=== PATIENT | female | born 1960 | race Caucasian/White ===

== ENCOUNTER 2020-04-25 08:04 | Observation (INO) ==
[2020-04-25] MEDS ORDERED: Midazolam 5 mg/5 ml VIAL 1 mg/ml 5 ml VIAL (5 mg) ONE (09:16)
[2020-04-25] MEDS ORDERED: fentaNYL 100 mcg/2 ml 50 MCG/ML VIAL ONE (09:16)
[2020-04-25] MEDS ORDERED: Heparin 2 UNITS/ML 1000 mls 3,000 ML IV ONE (09:17)
[2020-04-25] MEDS ORDERED: Heparin 1,000 UNIT/ML 10 ml (10,000 UNITS) CATHLAB/DIALYSIS ONE (09:17)
[2020-04-25] MEDS ORDERED: VERAPAMIL 2.5 MG/ML 2 ML VIAL ** 5 mg/2 ml ONE (09:17)
[2020-04-25] MEDS ORDERED: Iohexol 350 (CONTRAST) 200 ML MDV IV ONE ×3 (09:17→10:02)
[2020-04-25] MEDS ORDERED: Lidocaine 1% VIAL 10 MG/ML VIAL ONE (09:17)
[2020-04-25] MEDS ORDERED: nitroGLYCERIN DRIP 25,000 MCG/250 ML BTL ONE (09:17)
[2020-04-25] MEDS ORDERED: diPHENhydraMINE IV 50 MG/ML 1 ml VIAL (BENADRYL) ONE (09:47)
[2020-04-25] MEDS ORDERED: HYDROmorphone 1 MG/1 ML SYRINGE ONE (09:56)
[2020-04-25] MEDS ORDERED: Bivalirudin 250 MG VIAL ONE ×3 (10:48→12:13)
[2020-04-25] MEDS ORDERED: Bivalirudin 250 MG in NS 0.9% 50 ML 50 ML IV SCH (13:00)
[2020-04-25] MEDS: NS 0.9% 1000 ml BAG 1,000 ML IV SCH (13:10)
[2020-04-25 14:47] LABS: ABS Basophils 0.1 10^3/ul (0-0.2); ABS Eosinophils 0.1 10^3/ul (0-0.6); ABS Lymphocytes 2.6 10^3/ul (1.0-4.8); ABS Monocytes 0.4 10^3/ul (0-0.8); ABS Neutrophils 5.8 10^3/ul (1.5-7.7); Hematocrit 38 % (35-47); Lymphocyte % 29.2 %; Mean Corpuscular HGB Conc 34 g/dL (31-36); Mean Corpuscular Hemoglobin 30 pg (27-31); Mean Corpuscular Volume 88 fL (80-97); Mean Platelet Volume 9.1 fL (7.4-10.4); Platelet Count 256 10^3/uL (150-450); Red Blood Count 4.32 10^6 /uL (3.70-4.87); Red Cell Distribution Width 13 % (10-15); White Blood Count 8.9 10^3/uL (3.5-10.8)
[2020-04-25 15:17] LABS: BUN/Creatinine Ratio 17.6 (8-20); Calcium 9.4 mg/dL (8.6-10.3); EGFR African American 107.2 (>60); EGFR Non-African American 88.6 (>60); Phosphorus 3.4 mg/dL (2.5-5.0); Potassium 3.3 mmol/L (3.5-5.0)
[2020-04-25] MEDS ORDERED: Potassium Chlor 20 meq TAB.ER PO ONE (15:52)
[2020-04-26] MEDS: NS 0.9% 1000 ml BAG 1,000 ML IV SCH (00:21)
[2020-04-26 05:50] LABS: ABS Eosinophils 0.1 10^3/ul (0-0.6); ABS Lymphocytes 1.8 10^3/ul (1.0-4.8); ABS Monocytes 0.4 10^3/ul (0-0.8); ABS Neutrophils 6.1 10^3/ul (1.5-7.7); Eosinophil % 1.3 %; Hematocrit 28 % (35-47); Hemoglobin 9.8 g/dL (12.0-16.0); Lymphocyte % 21.5 %; Mean Corpuscular HGB Conc 35 g/dL (31-36); Mean Corpuscular Hemoglobin 30 pg (27-31); Mean Corpuscular Volume 87 fL (80-97); Mean Platelet Volume 8.6 fL (7.4-10.4); Platelet Count 178 10^3/uL (150-450); Red Blood Count 3.21 10^6 /uL (3.70-4.87); Red Cell Distribution Width 13 % (10-15); White Blood Count 8.5 10^3/uL (3.5-10.8)
[2020-04-26 06:07] LABS: BUN/Creatinine Ratio 18.8 (8-20); EGFR African American 160.2 (>60); EGFR Non-African American 132.4 (>60); Magnesium 1.3 mg/dL (1.9-2.7); Potassium 2.8 mmol/L (3.5-5.0)
[2020-04-26 06:13] LABS: Calcium 6.4 mg/dL (8.6-10.3)
[2020-04-26] MEDS ORDERED: Magnesium Sulf 4 GM/100 ML IV 4,000 MG/100 ML BAG IVPB ONE (07:08)
[2020-04-26] MEDS: KCL 20 MEQ/100 ML IVPREMIX 20 MEQ/100 ML BAG IV SCH ×3 (08:25→12:40)
[2020-04-26 08:33] LABS: Phosphorus 2.3 mg/dL (2.5-5.0)
[2020-04-26] MEDS ORDERED: Potassium Phosphate IV 5 MMOLE in NS 0.9% 250 ml 250 ML IVPB ONE (08:58)
[2020-04-26] MEDS ORDERED: CALCIUM GLUCONATE 1GM/50ML NS 1 GM/50 ML BAG IV ONE (08:59)
[2020-04-26] MEDS ORDERED: Potassium Chloride LIQUID 20 MEQ/15 ML LIQUID PO SCH (09:00)
[2020-04-26] MEDS ORDERED: AMLODIPINE 5 MG PO SCH (09:00)
[2020-04-26] MEDS ORDERED: CITALOPRAM 20 MG PO SCH (09:00)
[2020-04-26 15:08] LABS: Hematocrit 36 % (35-47); Hemoglobin 12.8 g/dL (12.0-16.0)
[2020-04-26 15:20] LABS: Potassium 4.3 mmol/L (3.5-5.0)
[2020-04-26 15:21] VITALS: BP 149/73
[2020-04-26 15:21] LABS: Calcium 9.5 mg/dL (8.6-10.3); EGFR African American 92.8 (>60); EGFR Non-African American 76.7 (>60); Magnesium 2.6 mg/dL (1.9-2.7); Phosphorus 3.6 mg/dL (2.5-5.0)
== END 2020-04-26 16:45 | disposition home or self-care (01) | DRG 175 ==
LOC: CHICATH 08:04 → INTOOBSV 13:22 → ICU 13:22
PROVIDERS: ADMIT Internal Medicine Cardiovascular Disease; ATTEND Internal Medicine Cardiovascular Disease

== ENCOUNTER 2020-08-21 18:07 | Observation (INO) ==
[2020-08-21] MEDS: NS 0.9% 1000 ml BAG 2,000 ML IV ONE ×2 (22:01→22:05)
[2020-08-21 22:28] LABS: Hematocrit 40 % (35-47); Hemoglobin 13.4 g/dL (12.0-16.0); Mean Corpuscular HGB Conc 33 g/dL (31-36); Mean Corpuscular Hemoglobin 29 pg (27-31); Mean Corpuscular Volume 87 fL (80-97); Mean Platelet Volume 8.9 fL (7.4-10.4); Platelet Count 283 10^3/uL (150-450); Red Blood Count 4.65 10^6 /uL (3.70-4.87); Red Cell Distribution Width 13 % (10-15); White Blood Count 23.4 10^3/uL (3.5-10.8)
[2020-08-21 22:34] LABS: Urine Appearance Cloudy; Urine Bilirubin Negative (Negative); Urine Blood 1+ (Negative); Urine Color Yellow; Urine Glucose Negative (Negative); Urine Ketones Trace (Negative); Urine Nitrite Negative (Negative); Urine Protein 2+(100 mg/dL) (Negative); Urine Specific Gravity 1.018 (1.002-1.030); Urine Urobilinogen Negative (Negative)
[2020-08-21 22:39] LABS: Urine Amorphous Crystals Present (Absent); Urine Bacteria 1+ (Absent); Urine Red Blood Cell 1+(3-5/hpf) (Absent); Urine Squamous Epithelial Cell Present (Absent); Urine White Blood Cell 3+(>20/hpf) (Absent)
[2020-08-21 22:40] LABS: ABS Lymphocytes 1.3 10^3/ul (1.0-4.8); ABS Monocytes 1.2 10^3/ul (0-0.8); ABS Neutrophils 20.9 10^3/ul (1.5-7.7); Lymphocyte % 5.6 %
[2020-08-21 22:47] LABS: Albumin 4.7 g/dL (3.2-5.2); Albumin/Globulin Ratio 1.5 (1-3); C Reactive Protein 140.13 mg/L (<8.01); Calcium 10.1 mg/dL (8.6-10.3); EGFR African American 82.8 (>60); EGFR Non-African American 68.5 (>60); Globulin 3.1 g/dL (2-4); Potassium 3.1 mmol/L (3.5-5.0); Total Bilirubin 1.7 mg/dL (0.2-1.0); Total Protein 7.8 g/dL (6.4-8.9)
[2020-08-21] MEDS ORDERED: Piperacillin/Tazobac ADVAN 3.375 GM in NS 0.9% 100 ml BAG 100 ML IV ONE (23:08)
[2020-08-21] MEDS ORDERED: Iohexol 300 (CONTRAST) 10 ML SDV IV ONE (23:27)
[2020-08-21 23:47] LABS: INR 1.29 (0.86-1.15)
[2020-08-22] MEDS ORDERED: Piperacillin/Tazobac ADVAN 3.375 GM in NS 0.9% 100 ml BAG 100 ML IV ONE (02:14)
[2020-08-22] MEDS ORDERED: Ondansetron 4 mg VIAL 2 MG/ML 2 ml VIAL IV PRN ×2 (02:14→12:11)
[2020-08-22] MEDS ORDERED: Morphine 2 MG/ML SYRINGE IV PRN ×2 (02:14→09:18)
[2020-08-22] MEDS ORDERED: Zosyn per Pharmacy NOTE FOLLOW UP SCH (03:00)
[2020-08-22] MEDS: NS 0.9% 1000 ml BAG 1,000 ML IV SCH ×2 (04:28→23:26)
[2020-08-22] MEDS: ZOSYN 3.375 GM Q8H per EXTENDED INFUSION IV SCH ×3 (05:02→19:24)
[2020-08-22 06:21] LABS: ABS Basophils 0.1 10^3/ul (0-0.2); ABS Lymphocytes 1.1 10^3/ul (1.0-4.8); ABS Monocytes 0.9 10^3/ul (0-0.8); ABS Neutrophils 18.3 10^3/ul (1.5-7.7); Hematocrit 36 % (35-47); Hemoglobin 12.2 g/dL (12.0-16.0); Lymphocyte % 5.5 %; Mean Corpuscular HGB Conc 34 g/dL (31-36); Mean Corpuscular Hemoglobin 29 pg (27-31); Mean Corpuscular Volume 86 fL (80-97); Mean Platelet Volume 8.3 fL (7.4-10.4); Platelet Count 238 10^3/uL (150-450); Red Blood Count 4.16 10^6 /uL (3.70-4.87); Red Cell Distribution Width 13 % (10-15); White Blood Count 20.3 10^3/uL (3.5-10.8)
[2020-08-22 06:26] LABS: INR 1.44 (0.86-1.15)
[2020-08-22] MEDS: KCL 20 MEQ/100 ML IVPREMIX 20 MEQ/100 ML BAG IV SCH ×7 (06:34→22:51)
[2020-08-22 06:35] LABS: Calcium 8.8 mg/dL (8.6-10.3); EGFR African American 90.1 (>60); EGFR Non-African American 74.5 (>60); Potassium 3.2 mmol/L (3.5-5.0)
[2020-08-22 07:55] LABS: Magnesium 1.9 mg/dL (1.9-2.7)
[2020-08-22] MEDS ORDERED: Buffered Lidocaine 1% SYRIN 1 ml INTRADERM ONE (10:20)
[2020-08-22] MEDS ORDERED: Bupivacaine 0.25% EPI 200,000 30 ML SDV ONE (11:24)
[2020-08-22] MEDS ORDERED: fentaNYL 100 mcg/2 ml 50 MCG/ML VIAL IV PRN (12:11)
[2020-08-22] MEDS ORDERED: DiMENhydriNATE IV 50 mg/ml 1 ml VIAL IV PUSH PRN (12:11)
[2020-08-22] MEDS ORDERED: Naloxone 0.4 mg VIAL 0.4 mg/ml 1 ml VIAL IV PRN (12:11)
[2020-08-22] MEDS ORDERED: oxyCODONE/Acetamin 5/325 mg TAB PO PRN ×2 (12:11→15:43)
[2020-08-22] MEDS ORDERED: Rocuronium 50 mg VIAL 10 mg/ml 5 ml VIAL (50 mg) ONE (12:32)
[2020-08-22] MEDS ORDERED: Lidocaine 2% PF 5 ML VIAL ONE (12:32)
[2020-08-22] MEDS ORDERED: fentaNYL 100 mcg/2 ml 50 MCG/ML VIAL ONE (12:32)
[2020-08-22] MEDS ORDERED: Propofol 10 MG/ML 20 ML BTL ONE (12:32)
[2020-08-22] MEDS ORDERED: Ondansetron 4 mg VIAL 2 MG/ML 2 ml VIAL ONE (12:33)
[2020-08-22] MEDS ORDERED: Dexamethasone IV 4 MG/ML VIAL 1 ml VIAL ONE (12:33)
[2020-08-23] MEDS: ZOSYN 3.375 GM Q8H per EXTENDED INFUSION IV SCH (03:31)
[2020-08-23 06:33] LABS: Calcium 8.5 mg/dL (8.6-10.3); EGFR African American 105.4 (>60); EGFR Non-African American 87.1 (>60); Potassium 4.5 mmol/L (3.5-5.0)
[2020-08-23 07:31] VITALS: BP 105/66
[2020-08-23 07:43] LABS: ABS Lymphocytes 0.6 10^3/ul (1.0-4.8); ABS Monocytes 0.5 10^3/ul (0-0.8); ABS Neutrophils 15.8 10^3/ul (1.5-7.7); Hematocrit 31 % (35-47); Hemoglobin 10.2 g/dL (12.0-16.0); Lymphocyte % 3.4 %; Mean Corpuscular HGB Conc 33 g/dL (31-36); Mean Corpuscular Hemoglobin 29 pg (27-31); Mean Corpuscular Volume 87 fL (80-97); Mean Platelet Volume 9.3 fL (7.4-10.4); Platelet Count 191 10^3/uL (150-450); Red Cell Distribution Width 13 % (10-15); White Blood Count 16.9 10^3/uL (3.5-10.8)
== END 2020-08-23 11:30 | disposition home or self-care (01) ==
LOC: ED 18:07 → INTOOBSV 08-22 02:11 → SSU 08-22 02:11
PROVIDERS: ADMIT Internal Medicine; ATTEND Internal Medicine